=== PATIENT | female | born 1995 | race Caucasian/White ===

== ENCOUNTER 2016-06-17 10:12 | Emergency (ER) | payer OTHER ==
[~2016-06-17] VITALS: Ht 160 cm; Wt 65.0 kg
[~2016-06-17 10:12] MED LIST: BENA25TA3 PO; EPIP0.3I IM; MEDR4PAK3 PO; PRED20 PO; PRED50 PO; Z.0.BCPILL PO
[2016-06-17 10:14] VITALS: BP 139/81; PULSE 100; RESP 20; TEMP 98.1; O2SAT 96
[2016-06-17] MEDS ORDERED: SODIUM CHLORIDE 0.9% FLUSH 10 ML FLUSH IVF PRN (10:45)
--- NOTE | 2016-06-17 10:58 | PD ---
HPI Chief Complaint: Cardiac Complaint Time Seen by Provider: 10:38 Travel History International Travel<30 days: No Contact w/Intl Traveler<30days: No Traveled to known affect area: No History of Present Illness HPI 21-year-old female here for evaluation of substernal chest discomfort. The patient reports that the symptoms started upon waking up this morning. She describes the discomfort as a pressure, moderate, nonradiating, no modifying factors. She also reports that she feels as though she cannot take a full breath. She denies history of cardiac disease. Family history of syncopal episodes in her father. No history of DVT or PE. No fevers, chills, cough, or recent illness. She tells me that she received a very stressful information yesterday evening. PFSH Past Medical History Medical History: Denies Significant Hx Diabetes: No Diminished Hearing: No Immunizations Current: No Tetanus Vaccination: Unknown Influenza Vaccination: No ?: Not LMP: 06/17/16 Past Surgical History Surgical History: No Previous Surgery Social History Alcohol Use: Yes (occasionally) Tobacco Use: No Substance Use: No Allergies-Medications (Allergen,Severity, Reaction): Coded Allergies: Banana (Verified Allergy, Severe, Anaphylaxis, 06/17/16) Clindamycin (Verified Allergy, Severe, RASH, 06/17/16) Flagyl (Verified Allergy, Severe, Rash, 06/17/16) Penicillin (Verified Allergy, Severe, HIVES, 06/17/16) ALL CILLINS Uncoded Allergies: Ortho Evra (Allergy, Intermediate, Rash, 04/21/14) Reported Meds & Prescriptions Reported Meds & Active Scripts Active Benadryl Allergy (Diphenhydramine HCl) 25 Mg Tab 25 Mg PO Q6H PRN Epipen 2-Hussain Inj (Epinephrine) 0.3 Mg/0.3 Ml Pfpen 0.3 Mg IM ONCE PRN Review of Systems Except as stated in HPI: all other systems reviewed are Neg Physical Exam Narrative GENERAL: Well-developed, well-nourished, comfortable, no acute distress. SKIN: Warm and dry. HEAD: Atraumatic. Normocephalic. EYES: Pupils equal and round. No scleral icterus. No injection or drainage. ENT: No nasal bleeding or discharge. NECK: Trachea midline. No JVD. CARDIOVASCULAR: Regular rate and rhythm. Distal pulses brisk and equal bilaterally. RESPIRATORY: No accessory muscle use. Clear to auscultation. Breath sounds equal bilaterally. GASTROINTESTINAL: Abdomen soft, non-tender, nondistended. MUSCULOSKELETAL: No obvious deformities. No clubbing. No cyanosis. No edema. NEUROLOGICAL: Awake and alert. No obvious cranial nerve deficits. Motor grossly within normal limits. Normal speech. PSYCHIATRIC: Appropriate mood and affect; insight and judgment normal. Data Data Last Documented VS Vital Signs Date Time Temp Pulse Resp B/P Pulse Ox O2 Delivery O2 Flow Rate FiO2 06/17/16 10:31 100 98 Room Air 06/17/16 10:14 98.1 20 139/81 Orders Electrocardiogram (06/17/16 10:43) Basic Metabolic Panel (Bmp) (06/17/16 10:43) Ckmb (Isoenzyme) Profile (06/17/16 10:43) Complete Blood Count With Diff (06/17/16 10:43) Magnesium (Mg) (06/17/16 10:43) Prothrombin Time / Inr (Pt) (06/17/16 10:43) Act Partial Throm Time (Ptt) (06/17/16 10:43) Troponin I (06/17/16 10:43) Chest, Single Ap (06/17/16 10:43) Ecg Monitoring (06/17/16 10:43) Iv Access Insert/Monitor (06/17/16 10:43) Oximetry (06/17/16 10:43) Sodium Chloride 0.9% Flush (Ns Flush) (06/17/16 10:45) Beta Hcg (Quant/Titer) (06/17/16 10:43) D-Dimer (06/17/16 10:45) CKMB (06/17/16 10:45) CKMB% (06/17/16 10:45) Labs Laboratory Tests Test 06/17/16 10:45 White Blood Count 6.6 TH/MM3 Red Blood Count 4.56 MIL/MM3 Hemoglobin 13.3 GM/DL Hematocrit 37.8 % Mean Corpuscular Volume 83.0 FL Mean Corpuscular Hemoglobin 29.2 PG Mean Corpuscular Hemoglobin 35.2 % Concent Red Cell Distribution Width 12.6 % Platelet Count 230 TH/MM3 Mean Platelet Volume 9.3 FL Neutrophils (%) (Auto) 75.3 % Lymphocytes (%) (Auto) 18.3 % Monocytes (%) (Auto) 5.7 % Eosinophils (%) (Auto) 0.3 % Basophils (%) (Auto) 0.4 % Neutrophils # (Auto) 5.0 TH/MM3 Lymphocytes # (Auto) 1.2 TH/MM3 Monocytes # (Auto) 0.4 TH/MM3 Eosinophils # (Auto) 0.0 TH/MM3 Basophils # (Auto) 0.0 TH/MM3 CBC Comment DIFF FINAL Differential Comment Prothrombin Time 11.9 SEC Prothromb Time International 1.1 RATIO Ratio Activated Partial 29.1 SEC Thromboplast Time D-Dimer Quantitative (PE/DVT) 0.28 MG/L FEU Sodium Level 139 MEQ/L Potassium Level 4.3 MEQ/L Chloride Level 108 MEQ/L Carbon Dioxide Level 23.5 MEQ/L Anion Gap 8 MEQ/L Blood Urea Nitrogen 6 MG/DL Creatinine 0.74 MG/DL Estimat Glomerular Filtration 99 ML/MIN Rate Random Glucose 89 MG/DL Calcium Level 9.2 MG/DL Magnesium Level 1.9 MG/DL Total Creatine Kinase 186 U/L Creatine Kinase MB 0.5 NG/ML Troponin I LESS THAN 0.02 NG/ML Human Chorionic Gonadotropin, LESS THAN 1 Quant MIU/ML MDM Medical Decision Making Medical Screen Exam Complete: Yes Emergency Medical Condition: Yes Interpretation(s) EKG: Sinus, rate 90, normal axis, normal intervals, no acute ischemic abnormality. Differential Diagnosis Anxiety, musculoskeletal pain, ACS, pneumothorax, pericarditis, PE, pneumonia Narrative Course Initial vital signs show heart rate of 100 which improved to 92 without any intervention, blood pressure 139/81, pulse ox 98% on room air, oral temp of 98.1 F. CBC is unremarkable. BMP is unremarkable. Cardiac enzymes are negative. Beta hCG is negative. D-dimer 0.28. Chest x-ray: No acute cardio pulmonary findings. The patient was made aware of all findings per she is resting comfortably. I do not believe her symptoms are cardiopulmonary in nature. I believe her symptoms are more likely related to the stressful news that she received last night/anxiety. She is not suicidal or homicidal. She is stable for discharge home with outpatient follow-up with a primary care physician this week. She was informed on when to return to the emergency department. She verbalizes understanding and agreement with plan. Diagnosis Primary Impression: Atypical chest pain Referrals: Primary Care Physician 3 days Additional Instructions: Follow-up with a primary care physician this week. Return to the emergency department for worsening symptoms or any other concerns. Disposition: 01 DISCHARGE HOME Condition: Stable Manuel Sahu MD Jun 17, 2016 10:58
[2016-06-17 11:02] LABS: BASOPHIL % 0.4 % (0.0-2.0); EOSINOPHIL % 0.3 % (0.0-4.0); HEMATOCRIT 37.8 % (35.0-46.0); HEMO FLAGS DIFF FINAL; LYMPH % 18.3 % (9.0-44.0); LYMPHOCYTE # 1.2 TH/MM3 (1.0-4.8); MEAN CORPUSCULAR HEMOGLOBIN 29.2 PG (27.0-34.0); MEAN CORPUSCULAR HGB CONC 35.2 % (32.0-36.0); MONO % 5.7 % (0.0-8.0); NEUT % 75.3 % (16.0-70.0); PLATELET COUNT 230 TH/MM3 (150-450); RED BLOOD COUNT 4.56 MIL/MM3 (4.00-5.30); RED CELL DISTRIBUTION WIDTH 12.6 % (11.6-17.2); WHITE BLOOD COUNT 6.6 TH/MM3 (4.0-11.0)
[2016-06-17 11:13] LABS: APTT (PATIENT) 29.1 SEC (24.3-30.1); INTERNATIONAL NORMALIZED RATIO 1.1 RATIO; PROTHROMBIN TIME - PATIENT 11.9 SEC (9.8-11.6)
--- NOTE | 2016-06-17 11:14 | RADRPT ---
EXAM DATE/TIME: 06/17/2016 10:52 [facility] COMPARISON: No previous studies available for comparison. INDICATIONS : Patient felt chest tightness since this morning. MEDICAL HISTORY : None. SURGICAL HISTORY : None. ENCOUNTER: Initial ACUITY: 1 day PAIN SCORE: 0/10 LOCATION: Bilateral chest FINDINGS: A single view of the chest demonstrates the lungs to be symmetrically aerated without evidence of mas s, infiltrate or effusion. The cardiomediastinal contours are unremarkable. Osseous structures are intact. CONCLUSION: 1. No acute cardiopulmonary findings. Chad Ledbetter MD on June 17, 2016 at 11:11 Board Certified Radiologist. This report was verified electronically.
[2016-06-17 11:31] LABS: ANION GAP 8 MEQ/L (5-15); BETA HCG QUANT LESS THAN 1 MIU/ML (0-5); BICARBONATE 23.5 MEQ/L (21.0-32.0); BLOOD UREA NITROGEN 6 MG/DL (7-18); CHLORIDE 108 MEQ/L (98-107); CREATINE KINASE 186 U/L (26-192); GLOMERULAR FILTRATION RATE 99 ML/MIN (>89); MAGNESIUM 1.9 MG/DL (1.5-2.5); SODIUM (NA) 139 MEQ/L (136-145)
[2016-06-17 11:33] LABS: POTASSIUM 4.3 MEQ/L (3.5-5.1)
[2016-06-17 11:46] LABS: CKMB 0.5 NG/ML (0.5-3.6)
--- NOTE | 2016-06-18 14:49 | EKG ---
Date Performed: 06/17/2016 Time Performed: 10:52:59 PTAGE: 21 years EKG: Sinus rhythm NORMAL ECG NO PREVIOUS TRACING DOCTOR: Lul Puente Interpretating Date/Time 06/18/2016 14:42:19
== END 2016-06-17 12:38 | disposition home or self-care (01) ==
LOC: NEPC 10:12
DX: R07.89 Other chest pain (principal)
CPT/HCPCS: 71010; 80048; 82550; 82552; 83735; 84484; 84702; 85025; 85379; 85610; 85730; 93005